=== PATIENT | male | born 1940 | race Caucasian/White ===

== ENCOUNTER 2022-10-29 16:10 | Inpatient (IN) | payer MEDICARE ==
[~2022-10-29] VITALS: Ht 182.9 cm; Wt 67.1 kg
[2022-10-29] MEDS: BLOOD SUGAR DIAGNOSTIC 1 EACH STRIP VI SCH (00:25)
[2022-10-29] MEDS: DONEPEZIL 10 MG TABLET PO SCH (00:30)
[2022-10-29] MEDS ORDERED: ACET-2605 PO (16:31)
[2022-10-29] MEDS ORDERED: ACET325C7 PO (16:31)
[2022-10-29] MEDS ORDERED: THIA100T88 PO (16:31)
[2022-10-29] MEDS ORDERED: DIVA500T4 PO (16:31)
[2022-10-29] MEDS ORDERED: MAGN400O6 PO (16:31)
[2022-10-29] MEDS ORDERED: SIMV-49 PO (16:31)
[2022-10-29] MEDS ORDERED: METF-440 PO (16:31)
[2022-10-29] MEDS ORDERED: TAMS-3 PO (16:31)
[2022-10-29] MEDS ORDERED: NA P133E RC (16:31)
[2022-10-29] MEDS ORDERED: QUET25TA PO (16:31)
[2022-10-29] MEDS ORDERED: CHOL200026 PO (16:31)
[2022-10-29] MEDS ORDERED: DONE10TA11 PO (16:31)
[2022-10-29 16:43] LABS: HEMATOCRIT 38.7 % (36.7-47.1); MEAN CORPUSCULAR HEMOGLOBIN 29.2 uug (23.8-33.4); MEAN CORPUSCULAR VOLUME 85.9 fL (73.0-96.2); PLATELET COUNT (AUTO) 121 K/uL (152-348)
[2022-10-29] MEDS ORDERED: IV NS 1000 ML 1,000 ML IV ONE (16:45)
[2022-10-29 17:01] LABS: CARBON DIOXIDE 29 mmol/L (21-32); CHLORIDE 108 mmol/L (98-107); CREATININE 0.7 mg/dL (0.6-1.3); GLUCOSE 158 mg/dL (74-106); UREA NITROGEN, BLOOD 13 mg/dL (7-18)
[2022-10-29 17:14] LABS: ALANINE AMINOTRANSFERASE 10 U/L (16-63); ALKALINE PHOSPHATASE 76 U/L (50-136); ASPARTATE AMINOTRANSFERASE 17 U/L (15-37); BILIRUBIN,DIRECT 0.1 mg/dL (0.0-0.2); BILIRUBIN,TOTAL 0.7 mg/dL (0.2-1.0); TOTAL PROTEIN, SERUM 5.9 g/dL (6.4-8.2)
[2022-10-29 17:53] LABS: *BILIRUBIN,URIN NEGATIVE (NEGATIVE); *BLOOD, URINE 1+ (NEGATIVE); *CLARITY,URINE SLIGHTLY CLOUDY (CLEAR); *COLOR,URINE YELLOW (YELLOW); *KETONES,URINE 2+ (NEGATIVE); LEUKOCYTE ESTERASE ,URINE 1+ (NEGATIVE); NITRITE, URINE POSITIVE (NEGATIVE); PH,URINE 5.5 (5.0-8.0); UGLUCOSE NEGATIVE (NEGATIVE)
[2022-10-29 18:12] LABS: WBC,URINE 50-80 /HPF (0-3)
[2022-10-29 18:13] LABS: BACTERIA,URINE MANY /HPF (NONE SEEN); SQUAMOUS EPITHELIAL CELL,UR FEW /HPF (NONE SEEN)
[2022-10-29] MEDS ORDERED: CEFTRIAXONE 1 G in IV DEXTROSE 5% 50 ML IV ONE (19:15)
[2022-10-29] MEDS ORDERED: CEFTRIAXONE /D5W 50ML IVPB **ER PYXIS IV ONE (19:17)
[2022-10-29] MEDS ORDERED: MAGNESIUM HYDROXIDE 30 ML LIQUID UDC PO PRN (20:30)
[2022-10-29] MEDS ORDERED: REMEDY ESSENTIAL ZINC PASTE 113 GM TP PRN (20:30)
[2022-10-29] MEDS ORDERED: DEXTROSE 50% 50 ML DISP.SYRIN IV PRN (20:30)
[2022-10-29] MEDS ORDERED: HYDROCODONE/APAP 5-325MG TABLET PO PRN (20:30)
[2022-10-29] MEDS ORDERED: ACETAMINOPHEN 325 MG TABLET PO PRN (20:30)
[2022-10-29] MEDS ORDERED: ONDANSETRON 4 MG/2 ML VIAL IV PRN (20:30)
[2022-10-29] MEDS: QUETIAPINE FUMARATE 25 MG TABLET PO SCH (21:00)
[2022-10-29] MEDS: TAMSULOSIN HCL 0.4 MG CAP.SR.24H PO SCH (21:00)
[2022-10-29] MEDS: SIMVASTATIN 40 MG TABLET PO SCH (21:00)
[2022-10-30] VITALS: BP 103/59
[2022-10-30] MEDS: IV 1/2NS 1000 ML 1,000 ML IV PRN ×2 (00:13→15:03)
[2022-10-30] MEDS: ENOXAPARIN SODIUM 40 MG/0.4 ML DISP.SYRIN SQ SCH ×2 (00:19→20:25)
[2022-10-30 04:00] VITALS: BP 143/77
[2022-10-30] MEDS: PANTOPRAZOLE SODIUM 40 MG TABLET.DR PO SCH (06:50)
[2022-10-30 06:51] LABS: HEMATOCRIT 38.3 % (36.7-47.1); MEAN CORPUSCULAR HEMOGLOBIN 29.4 uug (23.8-33.4); MEAN CORPUSCULAR VOLUME 86.4 fL (73.0-96.2); PLATELET COUNT (AUTO) 142 K/uL (152-348)
[2022-10-30] MEDS: BLOOD SUGAR DIAGNOSTIC 1 EACH STRIP VI SCH ×4 (06:51→20:52)
[2022-10-30 06:54] LABS: CARBON DIOXIDE 29 mmol/L (21-32); CHLORIDE 108 mmol/L (98-107); CREATININE 0.6 mg/dL (0.6-1.3); GLUCOSE 126 mg/dL (74-106); MAGNESIUM 1.6 mg/dL (1.8-2.4); POTASSIUM 3.1 mmol/L (3.5-5.1); UREA NITROGEN, BLOOD 11 mg/dL (7-18)
[2022-10-30] MEDS: QUETIAPINE FUMARATE 25 MG TABLET PO SCH ×4 (08:26→20:26)
[2022-10-30] MEDS: METFORMIN HCL 500 MG TABLET PO SCH ×2 (08:26→17:55)
[2022-10-30] MEDS: THIAMINE HCL 100 MG TABLET PO SCH (08:26)
[2022-10-30] MEDS ORDERED: DIVALPROEX ER 500 MG TAB.SR.24H PO SCH (09:00)
[2022-10-30] MEDS ORDERED: CEFTRIAXONE 1 G in IV DEXTROSE 5% 50 ML IV SCH (09:00)
[2022-10-30] MEDS: MAGNESIUM SULFATE/D5W 100 ML IV SCH ×2 (09:44→10:29)
[2022-10-30] MEDS ORDERED: POTASSIUM CHLORIDE 20 MEQ TAB.PRT.SR PO ONE (09:45)
[2022-10-30 11:04] VITALS: BP 105/52
[2022-10-30] MEDS ORDERED: DIVA500T2 PO (11:24)
[2022-10-30] MEDS ORDERED: DIVALPROEX 250 MG TABLET.DR PO SCH (11:30)
[2022-10-30] MEDS ORDERED: NEUTRA PHOS PACKET PO ONE (12:00)
[2022-10-30] MEDS: INSULIN REGULAR, HUMAN 300 UNIT/3 ML VIAL SQ PRN ×2 (12:13→20:53)
[2022-10-30 15:02] VITALS: BP 128/64
[2022-10-30] MEDS: DIVALPROEX 250 MG TABLET.DR PO SCH (16:05)
[2022-10-30 17:07] LABS: NEUTROPHILS % (MANUAL) 0 % (42-75)
[2022-10-30] MEDS: CEFTRIAXONE 1 G in IV DEXTROSE 5% 50 ML IV SCH (17:52)
[2022-10-30 20:09] VITALS: BP 120/57
[2022-10-30] MEDS: SIMVASTATIN 40 MG TABLET PO SCH (20:24)
[2022-10-30] MEDS: TAMSULOSIN HCL 0.4 MG CAP.SR.24H PO SCH (20:24)
[2022-10-30] MEDS: DONEPEZIL 10 MG TABLET PO SCH (20:24)
[2022-10-31 04:09] VITALS: BP 125/68
[2022-10-31] MEDS: IV 1/2NS 1000 ML 1,000 ML IV PRN ×2 (05:36→23:28)
[2022-10-31] MEDS: PANTOPRAZOLE SODIUM 40 MG TABLET.DR PO SCH (06:01)
[2022-10-31] MEDS: BLOOD SUGAR DIAGNOSTIC 1 EACH STRIP VI SCH ×4 (06:36→20:40)
[2022-10-31 07:28] LABS: CARBON DIOXIDE 30 mmol/L (21-32); CHLORIDE 107 mmol/L (98-107); CREATININE 0.7 mg/dL (0.6-1.3); GLUCOSE 115 mg/dL (74-106); MAGNESIUM 1.7 mg/dL (1.8-2.4); POTASSIUM 3.7 mmol/L (3.5-5.1); UREA NITROGEN, BLOOD 12 mg/dL (7-18)
[2022-10-31] MEDS: QUETIAPINE FUMARATE 25 MG TABLET PO SCH ×4 (08:05→20:11)
[2022-10-31] MEDS: METFORMIN HCL 500 MG TABLET PO SCH ×2 (08:05→17:00)
[2022-10-31] MEDS: DIVALPROEX 250 MG TABLET.DR PO SCH ×2 (08:05→16:02)
[2022-10-31] MEDS: THIAMINE HCL 100 MG TABLET PO SCH (08:05)
[2022-10-31] MEDS: MAGNESIUM SULFATE/D5W 100 ML IV SCH ×2 (10:16→11:24)
[2022-10-31] MEDS: INSULIN REGULAR, HUMAN 300 UNIT/3 ML VIAL SQ PRN ×2 (11:16→16:03)
[2022-10-31 11:53] VITALS: BP 116/64
[2022-10-31 15:54] VITALS: BP 147/72
[2022-10-31] MEDS: CEFTRIAXONE 1 G in IV DEXTROSE 5% 50 ML IV SCH (17:01)
[2022-10-31] MEDS: DONEPEZIL 10 MG TABLET PO SCH (20:10)
[2022-10-31] MEDS: TAMSULOSIN HCL 0.4 MG CAP.SR.24H PO SCH (20:10)
[2022-10-31] MEDS: ENOXAPARIN SODIUM 40 MG/0.4 ML DISP.SYRIN SQ SCH (20:11)
[2022-10-31] MEDS: SIMVASTATIN 40 MG TABLET PO SCH (20:11)
[2022-10-31 20:29] VITALS: BP 124/62
[2022-10-31] MEDS: MUPIROCIN 2% OINT 22 GM TUBE NS SCH (21:19)
[2022-11-01 04:00] VITALS: BP 150/71
[2022-11-01] MEDS: PANTOPRAZOLE SODIUM 40 MG TABLET.DR PO SCH (06:05)
[2022-11-01] MEDS: BLOOD SUGAR DIAGNOSTIC 1 EACH STRIP VI SCH ×4 (06:19→21:00)
[2022-11-01 06:38] LABS: HEMATOCRIT 38.1 % (36.7-47.1); MEAN CORPUSCULAR VOLUME 86.2 fL (73.0-96.2); PLATELET COUNT (AUTO) 166 K/uL (152-348)
[2022-11-01 06:54] LABS: CREATININE 0.6 mg/dL (0.6-1.3); MAGNESIUM 1.7 mg/dL (1.8-2.4); PHOSPHOROUS 2.6 mg/dL (2.5-4.9); POTASSIUM 3.5 mmol/L (3.5-5.1)
[2022-11-01] MEDS: DIVALPROEX 250 MG TABLET.DR PO SCH ×2 (09:04→16:17)
[2022-11-01] MEDS: THIAMINE HCL 100 MG TABLET PO SCH (09:04)
[2022-11-01] MEDS: METFORMIN HCL 500 MG TABLET PO SCH ×2 (09:04→17:07)
[2022-11-01] MEDS: QUETIAPINE FUMARATE 25 MG TABLET PO SCH ×4 (09:04→21:00)
[2022-11-01] MEDS: MUPIROCIN 2% OINT 22 GM TUBE NS SCH ×2 (09:05→21:00)
[2022-11-01] MEDS ORDERED: MAGNESIUM OXIDE 400 MG TABLET PO ONE (09:15)
[2022-11-01 11:30] VITALS: BP 123/71
[2022-11-01] MEDS: INSULIN REGULAR, HUMAN 300 UNIT/3 ML VIAL SQ PRN ×2 (11:50→16:42)
[2022-11-01] MEDS: IV 1/2NS 1000 ML 1,000 ML IV PRN (14:12)
[2022-11-01 16:00] VITALS: BP 131/69
[2022-11-01] MEDS: CEFTRIAXONE 1 G in IV DEXTROSE 5% 50 ML IV SCH (17:07)
[2022-11-01 20:18] VITALS: BP 119/57
[2022-11-01] MEDS: TAMSULOSIN HCL 0.4 MG CAP.SR.24H PO SCH (21:00)
[2022-11-01] MEDS: SIMVASTATIN 40 MG TABLET PO SCH (21:00)
[2022-11-01] MEDS: DONEPEZIL 10 MG TABLET PO SCH (21:00)
[2022-11-01] MEDS: ENOXAPARIN SODIUM 40 MG/0.4 ML DISP.SYRIN SQ SCH (21:05)
[2022-11-02] MEDS: IV 1/2NS 1000 ML 1,000 ML IV PRN (04:10)
[2022-11-02 04:14] VITALS: BP 121/67
[2022-11-02] MEDS: PANTOPRAZOLE SODIUM 40 MG TABLET.DR PO SCH (06:52)
[2022-11-02 08:00] VITALS: BP 136/71
[2022-11-02] MEDS: BLOOD SUGAR DIAGNOSTIC 1 EACH STRIP VI SCH ×3 (08:11→16:40)
[2022-11-02] MEDS: INSULIN REGULAR, HUMAN 300 UNIT/3 ML VIAL SQ PRN ×2 (08:27→11:32)
[2022-11-02] MEDS: THIAMINE HCL 100 MG TABLET PO SCH (08:29)
[2022-11-02] MEDS: DIVALPROEX 250 MG TABLET.DR PO SCH ×2 (08:29→16:43)
[2022-11-02] MEDS: QUETIAPINE FUMARATE 25 MG TABLET PO SCH ×3 (08:29→16:43)
[2022-11-02] MEDS: METFORMIN HCL 500 MG TABLET PO SCH ×2 (08:29→17:33)
[2022-11-02] MEDS: MUPIROCIN 2% OINT 22 GM TUBE NS SCH (08:30)
[2022-11-02 09:13] LABS: CREATININE 0.6 mg/dL (0.6-1.3); MAGNESIUM 1.7 mg/dL (1.8-2.4); POTASSIUM 3.9 mmol/L (3.5-5.1)
[2022-11-02 11:30] VITALS: BP 109/62
[2022-11-02 15:34] VITALS: BP 130/60
[2022-11-02] MEDS: CEFTRIAXONE 1 G in IV DEXTROSE 5% 50 ML IV SCH (17:33)
== END 2022-11-02 18:55 | DRG 690 ==
LOC: ER 16:13 → MEDSURG3 20:24
DX: N39.0 Urinary tract infection, site not specified (principal); E44.0 Moderate protein-calorie malnutrition; R78.81 Bacteremia; B96.20 Unspecified Escherichia coli [E. coli] as the cause of diseases classified elsewhere; G30.9 Alzheimer's disease, unspecified; F02.80 Dementia in other diseases classified elsewhere, unspecified severity, without behavioral disturbance, psychotic disturbance, mood disturbance, and anxiety; F29 Unspecified psychosis not due to a substance or known physiological condition; G47.00 Insomnia, unspecified; E78.5 Hyperlipidemia, unspecified; Z22.322 Carrier or suspected carrier of Methicillin resistant Staphylococcus aureus; D69.6 Thrombocytopenia, unspecified; E11.65 Type 2 diabetes mellitus with hyperglycemia; Z79.84 Long term (current) use of oral hypoglycemic drugs; E88.09 Other disorders of plasma-protein metabolism, not elsewhere classified; N40.0 Benign prostatic hyperplasia without lower urinary tract symptoms; Z20.822 Contact with and (suspected) exposure to COVID-19; Z87.440 Personal history of urinary (tract) infections; E55.9 Vitamin D deficiency, unspecified; I10 Essential (primary) hypertension; R13.11 Dysphagia, oral phase
CPT/HCPCS: 36415; 70030-TC; 71045; 83605; 83735; 84100; 84484; 85025; 85730; 87040; 93005; A4663; C1758; G0378; J0696; J1650; J1815; J3475; J3490; J7040